=== PATIENT | female | born 1955 | race Caucasian/White ===

== ENCOUNTER 2023-01-24 14:56 | Emergency (ER) | payer MEDICARE, SELFPAY ==
[2023-01-24 15:00] VITALS: BP 129/80; PULSE 76; RESP 17; TEMP 36; O2SAT 97; BMI 27.7
--- NOTE | 2023-01-24 15:01 | NURSING ---
NO OLD EKGS
[2023-01-24 15:03] VITALS: BP 133/79; PULSE 73; RESP 16; O2SAT 97; O2SAT 98
--- NOTE | 2023-01-24 15:03 | EKG12_ITS ---
Test Reason : CP Blood Pressure : / mmHG Vent. Rate : 078 BPM Atrial Rate : 078 BPM P-R Int : 162 ms QRS Dur : 088 ms QT Int : 424 ms P-R-T Axes : 039 047 037 degrees QTc Int : 483 ms Normal sinus rhythm Normal ECG Confirmed by ISAEL DELUCA, MELINDA ([id number]), publication editor DARREN WADDELL ([id number]) on 01/28/2023 7:59:31 AM Referred By: DONYA Confirmed By:MELINDA KIRKLAND MD
[2023-01-24] MEDS: Aspirin 81 MG TAB.CHEW 324 MG PO (15:15)
--- NOTE | 2023-01-24 15:19 | RAD_ITS ---
STUDY: X-RAY CHEST REASON FOR EXAM: Female, 67 years old. Chest pain TECHNIQUE: Single AP portable view of the chest. COMPARISON: None. FINDINGS: EKG electrodes are seen. Hyperinflation. Mild increased markings in the medial aspect of the right lower lobe. Early infiltrate should be ruled out. Follow-up is recommended. Normal size heart. Normal mediastinum and kendal. Normal visualized pulmonary arteries. Normal visualized aortic arch and descending thoracic aorta. There are degenerative changes of the visualized thoracic spine. Normal visualized ribs, clavicles, and shoulders. There is no demonstrated abnormality of the visualized soft tissue structures of the upper abdomen. RAD/Chest 1 View (Portable) IMPRESSION: Increased markings in the medial aspect of the right lower lobe. Follow-up is recommended. Electronically Signed: Mykel Rust MD at 15:35 EDT ,
--- NOTE | 2023-01-24 15:27 | ED.VIS.CHEST ---
HPI History of Present Illness Chief Complaint: Chest Pain Narrative Narrative: 67-year-old female presenting with chest pain which started this morning at about 10 AM. She describes it as retrosternal chest pressure which radiates around both sides to her back. She states she has been diaphoretic, nauseous. She states that the pain has been constant from about 10-2:30 today. She states she took 81 mg of aspirin at home. She states he tried to go to the store and walk around to see if that would help and it did not make it better or worse. Patient states that this morning she had a bowl of cereal which did not trigger any pain. She also states she had an exam which at lunch right before started having chest pain which she does not believe is associated. She denies any medical problems. She denies any cardiac history. No DVT/PE risk factors and no history. PFSH PFSH Medical History Smoker Allergy/AdvReac Type Severity Reaction Status Date / Time No Known Allergies Allergy Verified 01/24/23 15:01 Social History Smoking Status: Current every day smoker tobacco type: cigarettes ROS ROS ED Constitutional Constitutional ED: Reports sweats; Denies chills or fever(s) Eyes Eyes: Denies blurry vision or change in vision ENT ENT ED: Denies ear pain or sore throat Cardiovascular Cardiovascular: Reports chest pain; Denies palpitations or racing heartbeat Respiratory/Chest Respiratory/Chest: Denies cough, dyspnea or sputum Gastrointestinal Gastrointestinal: Reports nausea; Denies abdominal pain, constipation, diarrhea or vomiting Genitourinary Genitourinary ED: Denies dysuria, hematuria or urinary frequency Musculoskeletal Musculoskeletal: Denies arthralgias, myalgias or neck pain Integumentary Denies abscess, Abrasions or rash Neurologic Neurologic: Denies headache(s), paresthesias or weakness Psychiatric Psychiatric: Denies anxiety, depression, suicidal ideation or suicidal thoughts Endocrine Endocrinology: Denies polydipsia or polyuria EXAM Physical Exam Const Vital Signs: 01/24/23 15:00 01/24/23 15:03 01/24/23 15:03 Temperature 96.8 F L Temperature Source Temporal Pulse Rate 76 73 Respiratory Rate 17 16 Respiratory Effort Respiratory Pattern Blood Pressure 129/80 H 133/79 H Blood Pressure Mean 96 97 Pulse Ox 97 98 97 Oxygen Delivery Method Room Air Room Air Room Air 01/24/23 15:15 01/24/23 17:03 01/24/23 19:20 Temperature 97.9 F Temperature Source Pulse Rate 70 76 Respiratory Rate 17 16 Respiratory Effort Normal Non-Labored Respiratory Pattern Normal Blood Pressure 128/70 H 112/72 Blood Pressure Mean 89 Pulse Ox 97 96 Oxygen Delivery Method Room Air 01/24/23 19:00 Temperature Temperature Source Pulse Rate 75 Respiratory Rate 16 Respiratory Effort Respiratory Pattern Blood Pressure 125/65 H Blood Pressure Mean 85 Pulse Ox 96 Oxygen Delivery Method Room Air Positive well nourished General Appearance ED: NAD; Negative for pallor HEENT Reports moist mucous membranes normocephalic Eyes PERRL and EOMs intact bilaterally Neck no lymphadenopathy Chest Wall inspection of chest normal Resp normal respiratory effort and clear to auscultation bilaterally Auscultation: Negative for rales, rhonchi or wheezes Cardio regular rate and regular rhythm GI GI Narrative: Mild right upper quadrant/epigastric tenderness. Back/Spine no CVA tenderness Extremity normal to inspection General Extremety ED: Negative for edema General Extremity: Negative for edema Neuro CN's II-XII intact bilaterally Sensorium / Orientation: awake and alert Psych mental status grossly normal Skin General Skin Exam: Negative for jaundice or pallor Heart Score History: Slightly/Non-Suspicious ECG: Normal Age: >/= 65 years Risk Factors: 1 or 2 Risk Factors Troponin: </= Normal Limit Score: 3 MDM MDM MDM Narrative Medical decision making narrative: Patient presenting with chest pain which is down to a 2/10 currently. HEART score 3. She rated it as a 10 of 10 most of the day and it started at 10 AM and lasted till 230 which wax and wane in severity somewhat. She does state that she was diaphoretic at times, nauseous. Differential includes but is not limited to ACS, PE, aortic dissection, pneumonia, muscle strain, costochondritis, malignancy. Patient is a smoker but otherwise states she has no other medical problems. Her physical exam is unremarkable. Considered pneumothorax however she has equal symmetric breath sounds and chest wall rise. Considered PE however she is PERC negative. There is no sharp pleuritic component to her chest pain either. CBC to assess white blood cell count, hemoglobin, platelets, differential. BMP to assess renal function electrolytes, glucose, anion gap. I will add liver enzymes and lipase due to her upper abdominal pain. EKG, high-sensitivity troponin and chest were ischemia. Chest x-ray to rule out pneumonia. CBC shows no leukocytosis. Hemoglobin hematocrit are stable. Platelets are normal. Renal function and electrolytes within normal limits. Liver function testing is unremarkable. Lipase negative. High-sensitivity troponin 5 and delta troponin 4. No significant overall change. On reevaluation she is not have any chest pain and she does not have any reproducible abdominal pain. We did discuss possible gallstones as a source of her pain. I feel at this time she is negative work-up is stable discharge. Return precautions were discussed. She given primary care follow-up. Impression: 1. Chest pain 2. Abdominal pain Lab Data Attestation: I reviewed the patient's lab results. Labs: Laboratory Results - last 24 hr 01/24/23 01/24/23 01/24/23 15:15 15:15 15:15 WBC 7.7 RBC 4.23 Hgb 12.3 Hct 36.9 L MCV 87.2 MCH 29.1 MCHC 33.3 RDW Std Deviation 41.6 RDW Coeff of Vashti 13.2 Plt Count 167 MPV 12.1 H Immature Gran % (Auto) 0.300 Neut % (Auto) 67.9 Lymph % (Auto) 24.9 Dyer % (Auto) 4.4 Eos % (Auto) 2.2 Baso % (Auto) 0.3 Absolute Neuts (auto) 5.2 Absolute Lymphs (auto) 1.91 Nucleated RBC % 0 Total Bilirubin 0.50 Direct Bilirubin 0.28 AST 56 H ALT 34 Alkaline Phosphatase 79 Troponin I High Sens 4 Total Protein 7.3 Albumin 3.4 Globulin 3.9 Lipase 27 01/24/23 17:40 WBC RBC Hgb Hct MCV MCH MCHC RDW Std Deviation RDW Coeff of Vashti Plt Count MPV Immature Gran % (Auto) Neut % (Auto) Lymph % (Auto) Dyer % (Auto) Eos % (Auto) Baso % (Auto) Absolute Neuts (auto) Absolute Lymphs (auto) Nucleated RBC % Total Bilirubin Direct Bilirubin AST ALT Alkaline Phosphatase Troponin I High Sens 5 Total Protein Albumin Globulin Lipase Radiography Diagnostic Testing: Clinical Impression(s) from Imaging Studies Chest X-Ray 01/24/23 15:19 IMPRESSION: Increased markings in the medial aspect of the right lower lobe. Follow-up is recommended. Electronically Signed: Mykel Rust MD at 15:35 EDT , Discharge Plan Triage Chief Complaint: Chest Pain ED Provider: Kamran Larsen Dx/Rx/DC Orders Instructions: ED Chest Pain, Noncardiac Referrals: Anel Acosta DO [Med Staff - Active Staff] - 3-5 Days Disposition Disposition: Home, Self Care Discharge Date/Time: 01/24/23 19:23
[2023-01-24 15:30] LABS: Absolute Lymphocyte Count 1.91 X10^3/uL (0.83-4.51); Absolute Neutrophil Count 5.2 X10^3/uL (2.0-7.7); Basophil# 0.02 X10^3/uL; Basophil% 0.3 % (0-1); Eosinophil# 0.17 X10^3/uL; Eosinophils% 2.2 % (0-5); Hematocrit 36.9 % (37-47); Hemoglobin 12.3 g/dL (12.0-15.0); Lymphocyte # 1.91 X10^3/ul (0.83-4.51); Lymphocyte % 24.9 % (19-41); Mean Corp Hgb Conc 33.3 g/dL (32-36); Mean Corpuscular Hgb 29.1 pg (27.0-32.0); Mean Corpuscular Volume 87.2 fL (81-99); Mean Platelet Vol. 12.1 fl (6.2-12.0); Monocyte# 0.34 X10^3/uL; Monocyte% 4.4 % (0-10); NRBC Flagged by Analyzer 0 % (0-5); Neutrophil # 5.22 X10^3/uL (2.7-7.7); Neutrophil % 67.9 % (47-70); Platelet Count 167 K/mm3 (150-450); RBC Distribution Width CV 13.2 % (11.6-14.6); RBC Distribution Width SD 41.6 fl (35.1-43.9); Red Blood Count 4.23 M/mm3 (4.2-5.4); White Blood Count 7.7 K/mm3 (4.4-11.0)
[2023-01-24 15:48] LABS: AST(SGOT) 56 U/L (15-37); Alanine Aminotransfer ALT/SGPT 34 U/L (13-56); Albumin, Serum 3.4 g/dL (3.2-5.0); Alkaline Phosphatase 79 U/L (45-117); Bilirubin, Direct 0.28 mg/dL (0.00-0.30); Globulin 3.9 g/dL (2.2-4.2); Protein, Total 7.3 g/dL (6.4-8.2); Troponin-I HS (w/2H Reflex) 4 pg/mL (3.0-54.0)
[2023-01-24 16:16] LABS: Lipase 27 U/L (13-75)
[2023-01-24 17:03] VITALS: BP 128/70; PULSE 70; RESP 17; O2SAT 97
[2023-01-24 17:24] LABS: Reflex Troponin-HS? (from REC) Y
[2023-01-24 18:15] LABS: Troponin-I HS 5 pg/mL (3.0-54.0)
[2023-01-24 19:00] VITALS: BP 125/65; PULSE 75; RESP 16; O2SAT 96
[2023-01-24 19:20] VITALS: BP 112/72; PULSE 76; RESP 16; TEMP 36.6; O2SAT 96
== END 2023-01-24 19:23 | disposition home or self-care (01) ==
PROVIDERS: Emergency Provider Student in an Organized Health Care Education/Training Program; Visit Provider Student in an Organized Health Care Education/Training Program
DX: R07.9 Chest pain, unspecified (principal); F17.210 Nicotine dependence, cigarettes, uncomplicated; R10.9 Unspecified abdominal pain
CPT/HCPCS: 71045; 80076; 83690; 84484; 85025; 93005; 99285; A4216

== ENCOUNTER → 2023-03-19 | Outpatient (CLI) | payer MEDICARE, SELFPAY ==
[2023-03-19 13:38] LABS: ALB/GLOB Ratio 0.9 RATIO (0.9-2.4); AST(SGOT) 15 U/L (15-37); Alanine Aminotransfer ALT/SGPT 16 U/L (13-56); Albumin, Serum 3.7 g/dL (3.2-5.0); Alkaline Phosphatase 67 U/L (45-117); Anion Gap 5 (5-15); BUN 15 mg/dL (7-18); Calcium,Total 9.2 mg/dL (8.5-10.1); Chloride 106 mmol/L (98-107); Cholesterol 229 mg/dL (200); Creatinine, Serum 0.79 mg/dL (0.55-1.02); EST Glomerular Filtration Rate 77 mL/min (>60); Est Glom Filt Rate - Afr Amer 94 mL/min (>60); Glucose 89 mg/dL (74-106); High Density Lipoprotein 63 mg/dL; Potassium 3.9 mmol/L (3.5-5.1); Protein, Total 7.7 g/dL (6.4-8.2); Sodium Level 138 mmol/L (136-145); Triglycerides 182 mg/dL; Very Low Density Lipoprotein 36 mg/dL (5-40)
== END | disposition home or self-care (01) ==
LOC: MFPLAB 10:45
PROVIDERS: PCP Family Medicine; Visit Provider Family Medicine
DX: Z13.6 Encounter for screening for cardiovascular disorders (principal); Z13.1 Encounter for screening for diabetes mellitus
CPT/HCPCS: 36415; 80053; 80061

== ENCOUNTER → 2023-04-02 | Outpatient (CLI) | payer MEDICARE, BC, SELFPAY ==
--- NOTE | 2023-04-02 12:16 | BI_ITS ---
MAMMOGRAPHY - BILATERAL SCREENING REASON FOR EXAM: Female, 67 years old. Routine annual screening examination. PERTINENT HISTORY: Non-contributory. TECHNIQUE: Digital bilateral breast pascual (3D mammographic acquisition) in the CC and MLO projections. 2-D mediolateral oblique (MLO) and craniocaudad (CC) views of both breasts were obtained. CAD: Full Field Digital Mammography with Computer Added Detection was performed. COMPARISON: None. Baseline examination. FINDINGS: Breast Composition: There are scattered areas of fibroglandular density. There are no dominant masses or suspicious calcifications. Small benign-appearing bilateral axillary lymph nodes. No other significant abnormalities are identified. There has been no significant change since the prior study. BI/SCRN MAMM (CAD)W/PASCUAL BILAT IMPRESSION: Stable bilateral screening mammogram. Yearly follow-up mammogram recommended. (A) ASSESSMENT CATEGORY: BIRADS Category 2: Benign. A letter regarding these results will be sent to the patient by the facility within 30 days. Approximately 10% of breast cancers are not detected by mammography. A normal mammogram should not delay biopsy of a clinically suspicious abnormality. [id number] Electronically Signed: Mykel Rust MD at 13:23 EDT ,
--- NOTE | 2023-04-02 12:21 | BD_ITS ---
STUDY: DUAL ENERGY X-RAY ABSORPTIOMETRY / DXA REASON FOR EXAM: Female, 67 years old. [id number] TECHNIQUE: Bone Mineral Density (BMD) measurements of lumbar spine and bilateral hips were obtained. COMPARISON: None. FINDINGS: Lumbar Spine (L1-L4): g/cm2 (1.050) / T-score (0.0) / Z-score (2.0) Findings are suggestive of normal bone density with a low fracture risk. Left Femur Total: g/cm2 (0.888) / T-score (-0.4) / Z-score (0.9) Left Femoral Neck: g/cm2 (0.758) / T-score (-0.8) / Z-score (0.8) Right Femur Total: g/cm2 (0.904) / T-score (-0.3) / Z-score (1.1) Right Femoral Neck: g/cm2 (0.742) / T-score (-1.0) / Z-score (0.7) BD/Dexa Bone Density Study IMPRESSION: The patient is considered normal as outlined below according to World [employer] Organization (WHO) criteria with a low fracture risk. Reference Information: The T-score is the number of standard deviations above or below the standard which is normal for young adults at their peak bone mineral density. The World Health Organization (WHO) interprets the T-scores as follows: Above -1 Normal bone density Between -1 and -2.5 Osteopenia Equal to / or below -2.5 Osteoporosis As a practical clinical guideline, osteopenia may be graded as follows: Mild -1 through -1.5 Moderate -1.6 through -2.0 Severe -2.1 through -2.4 The Z-score is the number of standard deviations above or below age-matched controls. A Z-score of less than -1.5 would be considered abnormal. References: 1. NIH Osteoporosis and Related Bone Diseases www osteo.org 2. International Society for Clinical Densitometry www iscd.org 3. National Osteoporosis Foundation www nof.org Electronically Signed: Mykel Rust MD at 13:28 EDT ,
== END | disposition home or self-care (01) ==
PROVIDERS: PCP Family Medicine; Referring Provider Family Medicine; Visit Provider Family Medicine
DX: Z12.31 Encounter for screening mammogram for malignant neoplasm of breast (principal); Z78.0 Asymptomatic menopausal state; Z13.820 Encounter for screening for osteoporosis
CPT/HCPCS: 77063; 77067; 77080